=== PATIENT | male | born 1990 | race African-American/Black ===

== ENCOUNTER → 2017-05-04 | Outpatient (CLI) | payer OTHER ==
--- NOTE | 2017-05-04 12:27 | REP ---
WHOLE BODY BONE SCAN: Following the intravenous administration of 21.8 millicuries technetium 99m MDP, patient's whole body is imaged in the anterior and posterior projections with additional oblique images of the thoracic and pelvic regions performed as well as lateral views of the calvarium, knees and feet. 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 There is increased uptake in the region of the left first metatarsophalangeal joint. There is increased uptake in the right hind foot, one focus which appears to be at the anterior margin of the talus and the other focus at the anterior margin of the calcaneus. Mild increased uptake is seen in both patellas, more so on the left than on the right. No other significant abnormal uptake is seen in the axillary or appendicular skeleton. Renal and bladder activity are seen. 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 Mild increased uptake at the left first metatarsophalangeal joint, two foci of increased uptake in the right hind foot, appear to be at the anterior margins of the talus and calcaneus. Mild increased uptake in both patella, left greater than right. Signed by Perry Magdaleno MD 05/04/2017 03:47 P
== END ==
LOC: M RAD 08:13
PROVIDERS: ATTEND Orthopaedic Surgery
DX: Q78.8 Other specified osteochondrodysplasias (principal)
CPT/HCPCS: 78306; A9503

== ENCOUNTER → 2017-10-07 | Outpatient (REF) | payer OTHER ==
[2017-10-07 20:26] LABS: CHLAMYDIA DNA AMPLIFICATION POSITIVE (NEGATIVE); GC DNA AMPLIFICATION NEGATIVE (NEGATIVE)
== END ==
LOC: M SFHCLERA 12:34
DX: Z20.2 Contact with and (suspected) exposure to infections with a predominantly sexual mode of transmission (principal)

== ENCOUNTER → 2019-09-07 | Outpatient (CLI) | payer OTHER | LOC: M LABSMTC 09:58 | PROVIDERS: ATTEND Family Medicine | DX: Z11.59 Encounter for screening for other viral diseases (principal); Z20.828 Contact with and (suspected) exposure to other viral communicable diseases ==